=== PATIENT | male | born 1970 | race Two or more races ===

== ENCOUNTER 2016-08-11 17:10 | Emergency (ER) | payer MEDICAID, OTHER ==
--- NOTE | 2016-08-11 18:05 | ERNOTE ---
Upper Extremity HPI - Narrative Date of Service: 08/11/16 - General Extremities Pain Location: hand: left, 3rd finger: left - unable to extend Time Seen by Provider: 08/11/16 17:21 Source: patient Exam Limitations: no limitations - Immun/Allergies/Home Medications Immunizations: IMMUNIZATION HX Immunizations Up to Date Yes Allergies/Adverse Reactions: Allergies Allergy/AdvReac Type Severity Reaction Status Date / Time No Known Allergies Allergy Verified 08/11/16 17:32 Home Medications: HOME MEDICATIONS Etodolac [Etodolac ER] 400 mg PO BID 08/11/16 [Last Taken Unknown] Naproxen [Naprosyn] 500 mg PO BID PRN #60 tab 08/11/16 [Last Taken Unknown] - History of Present Illness Narrative: Pt. comes in with c/o L dorsal third, fourth, and fifth DIP joint as well as third finger pain after he got his hand caught between a foot ball and someone' s head while playing football at the group home. Pt. denies any alleviating factors but states that movement and palpation exacerbates the pain. Pt. denies any prehospital treatment. Pt. also states that he is not able to straighten out his third finger, but pt. denies any numbness or tingling. Review of Systems - Review of Systems Constitutional: Present: no symptoms reported. Absent: recent illness, fever, chills, fatigue, malaise EYE: Present: no symptoms reported ENT: Present: no symptoms reported Respiratory: Present: no symptoms reported. Absent: shortness of breath, cough , wheezing Cardiology: Present: no symptoms reported. Absent: chest pain, palpitations, edema Gastrointestinal/Abdominal: Present: no symptoms reported. Absent: nausea, vomiting, diarrhea, abdominal pain Genitourinary: Present: no symptoms reported Musculoskeletal: Present: no symptoms reported. Absent: back pain, joint pain Skin: Present: no symptoms reported. Absent: rash, change in hair/nails Neurological: Present: no symptoms reported. Absent: headache, dizziness/light- headedness, numbness, tingling All Other Systems: All systems neg except as marked - Patient's Past Medical History Patient History - Medical: Chronic Pain, GERD Patient History - Cardiac/Respiratory: No pertinent hx Patient History - Cancer: No Hx of Cancer Patient History - Surgical Procedures: Other - Social History Smoking Status: Former smoker Have you smoked in the past 12 months: No - Immunizations Immunizations Up to Date: Yes Physical Exam - Physical Exam General Appearance: Present: wd/wn, alert, no apparent distress Eye Exam: Normal inspection: bilateral, PERRL: bilateral, EOMI: bilateral Ears, Nose, Throat: Present: normal ENT inspection, hearing grossly normal, normal pharynx Neck: Present: normal inspection, nontender. Absent: lymphadenopathy (R), lymphadenopathy (L) Respiratory: Present: no respiratory distress, normal breath sounds, no accessory muscle use, chest nontender, lungs clear Cardiovascular/Chest: Present: regular rate, rhythm, no murmur, normal peripheral pulses Gastrointestinal/Abdominal: Present: normal bowel sounds, nontender, nondistended, soft, no organomegaly Back Exam: Present: normal inspection, normal range of motion, no CVA tenderness , no vertebral tenderness Extremity Exam: Present: decreased range of motion - extension, joint redness - L third fourth and fifth knuckles Neurological Exam: Present: alert, oriented, normal mood/affect, no motor/ sensory deficits, 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 Absent: pallor, skin rash ED Progress - Vital Signs Patient's Vital Signs:: I have reviewed the patient's vital signs. Vital Signs: Vital Signs 08/11/16 17:16 Temperature 36.2 C L Pulse Rate 100 Respiratory 14 Rate Blood Pressure 164/106 O2 Sat by Pulse 94 Oximetry - X-Ray X-Ray #1 X-Ray: hand Interpretation: Reviewed by me X-ray Comments: IMPRESSION: MILDLY IMPACTED, MILDLY ANGULATED DISTAL LEFT FOURTH METACARPAL FRACTURE. AGAIN, THIS HAS SOME ASSOCIATED CALLUS FORMATION SUGGESTING THIS IS A SUBACUTE FRACTURE. - Progress/Reassessment Chief Complaint: Hand Injury/Pain Progress:: Unchanged Departure Clinical Impression: Nontraumatic subluxation of extensor tendon at metacarpophalangeal joint of hand Qualifiers: Laterality: left Qualified Code(s): M66.242 - Spontaneous rupture of extensor tendons, left hand - Departure Disposition: [facility] Condition: Good Instructions: Tendon Injury Prescriptions: Naproxen [Naprosyn] 500 mg PO BID PRN #60 tab PRN Reason: Pain
[2016-08-11 18:13] VITALS: BP 158/98
== END 2016-08-11 18:28 ==
LOC: ER 17:10
DX: M66.242 Spontaneous rupture of extensor tendons, left hand (principal); Z87.891 Personal history of nicotine dependence; W23.0XXA Caught, crushed, jammed, or pinched between moving objects, initial encounter; Y93.61 Activity, american tackle football; Y92.149 Unspecified place in prison as the place of occurrence of the external cause